=== PATIENT | male | born 1945 | race Caucasian/White ===

== ENCOUNTER → 2017-05-18 | Day surgery (SDC) | payer MEDICARE ==
[~2017-05-18] MED LIST: BUPIVACAINE/EPINEPHRINE 0.5% PF 10 ML VIAL INFIL ONE; FLUMAZENIL 0.5 MG/5 ML VIAL IV ONE; LACTATED RINGER'S 1000 ML INJ 1,000 ML ONE; MIDAZOLAM HCL 2 MG/2 ML VIAL ONE; PROPOFOL 200 MG/20 ML AMP IV ONE; ceFAZolin 2 GM PREMIX 50 ML ONE
--- NOTE | 2017-05-18 16:06 | TN ---
cc: LUANA GUERRA DATE OF SURGERY: ] 05/18/2017 PREOPERATIVE DIAGNOSIS Thin melanoma of right lateral neck. POSTOPERATIVE DIAGNOSIS Thin melanoma of right lateral neck. PROCEDURE; Wide excision melanoma right lateral neck. With intermediate closure of 5 cm x 2 cm wound. SURGEON: Luana Guerra MD FOOD AIDE: Staff. ANESTHESIA: TIVA and local anesthesia. ESTIMATED BLOOD LOSS: Less than 10 cc. COMPLICATIONS None FINDINGS Completely excised surgical scar 1 cm. All margins. INDICATIONS FOR PROCEDURE The patient is a 72-year-old male who is reason diagnosed with the melanoma was right neck after excisional biopsy by dermatology. The patient is referred for general surgical oncology for evaluation and a wide excision of melanoma for treatment melanoma. The risks, benefits and alternatives were discussed with the patient including the lymph node evaluation and the patient elected to undergo wide excision only for treatment was right lateral neck melanoma. PROCEDURE The patient was taken to the operating room at [facility] placed under TIVA and placed in the supine position. The right neck was prepped and draped in sterile fashion. Time-out was performed. Local anesthetic was instilled under the patients planned excision site. 1 cm was marked, 360 degrees around the patients previous excisional scar on the right neck. This was sized with a 15 blade scalpel and Bovie electrocautery down to the platysma fascia. This was marked with a stitch 12 o'clock and superior. all the blood is small amount of undermining of this we had of redundant skin in this area was easily closed without any tension. We closed this with 3-0 Vicryl deep dermal sutures followed for Monocryl and Dermabond. The patient discontinued from our TIVA anesthetic taken to PACU in stable condition. The patient tolerated well. No apparent complications. All counts were correct I was present and scrubbed for the entire procedure. MD NADER [email or web address] /11:55 AM /3:56 PM
== END | disposition home or self-care (01) ==
LOC: ESDC 09:05
PROVIDERS: ATTEND Surgery
DX: C43.4 Malignant melanoma of scalp and neck (principal)
CPT/HCPCS: 00300; 11626; 12032; 88305; J0690; J2250; J3010; J7120